=== PATIENT | female | born 1955 | race Caucasian/White ===

== ENCOUNTER → 2016-10-24 | Outpatient (CLI) | payer BC ==
[2016-10-24 13:18] LABS: ABSOLUTE EOSINOPHILS # (AUTO) 0.1 10^3/uL (0.0-0.6); ABSOLUTE LYMPHOCYTES (AUTO) 1.2 10^3/uL (0.5-4.7); ABSOLUTE MONOCYTES (AUTO) 0.5 10^3/uL (0.1-1.4); BASOPHILS % (AUTO) 0.6 % (0-2); EOSINOPHILS % (AUTO) 1.9 % (0-6); HEMOGLOBIN 14.3 g/dL (12.0-15.5); HGB HCT DIFFERENCE -2.1; LYMPHOCYTES % (AUTO) 17.1 % (13-45); MEAN CORPUSCULAR HGB CONC 31.8 g/dL (32.0-36.0); MEAN CORPUSCULAR VOLUME 88 fl (80-97); MONOCYTES % (AUTO) 7.9 % (3-13); RED BLOOD COUNT 5.12 10^6/uL (3.72-5.28); RED CELL DISTRIBUTION WIDTH 14.5 % (11.5-14.0); SEGMENTED NEUTROPHILS % (AUTO) 72.5 % (42-78); WHITE BLOOD COUNT 6.8 10^3/uL (4.0-10.5)
[2016-10-25 09:10] LABS: IMMUNOGLOBULIN E 3 IU/mL (0-100)
[2016-10-26 11:40] LABS: E001-IGE CAT DANDER <0.10 kU/L (Class 0); E005-IGE DOG DANDER <0.10 kU/L (Class 0); G002-IGE BERMUDA GRASS <0.10 kU/L (Class 0); G006-IGE TIMOTHY GRASS <0.10 kU/L (Class 0); G010-IGE JOHNSON GRASS <0.10 kU/L (Class 0); G017-IGE BAHIA GRASS <0.10 kU/L (Class 0); I100-IGE COCKROACHAMERICAN <0.10 kU/L (Class 0); M001-IGE PENICILLIUM CHRYSOGEN <0.10 kU/L (Class 0); M002-IGE CLADOSPORIUM HERBARUM <0.10 kU/L (Class 0); M003-IGE ASPERGILLUS FUMIGATUS <0.10 kU/L (Class 0); M004-IGE MUCOR RACEMOSUS <0.10 kU/L (Class 0); M005-IGE CANDIDA ALBICANS <0.10 kU/L (Class 0); M006-IGE ALTERNARIA ALTERNATA <0.10 kU/L (Class 0); M008-IGE SETOMELANOMMA ROSTRAT <0.10 kU/L (Class 0); M009-IGE FUSARIUM PROLIFERATUM <0.10 kU/L (Class 0); M010-IGE STEMPHYLIUM HERBARUM <0.10 kU/L (Class 0); M012-IGE AUREOBASIDI PULLULANS <0.10 kU/L (Class 0); M013-IGE PHOMA BETAE <0.10 kU/L (Class 0); T001-IGE MAPLE/BOX ELDER <0.10 kU/L (Class 0); T003-IGE BIRCH SILVER <0.10 kU/L (Class 0); T006-IGE CEDAR MOUNTAIN <0.10 kU/L (Class 0); T007-IGE OAK WHITE <0.10 kU/L (Class 0); T008-IGE ELM AMERICAN (WHITE <0.10 kU/L (Class 0); T011-IGE MAPLE LEAF SYCAMORE <0.10 kU/L (Class 0); T041-IGE HICKORY WHITE <0.10 kU/L (Class 0); T211-IGE SWEET GUM <0.10 kU/L (Class 0); W001-IGE RAGWEED SHORT/COMMO <0.10 kU/L (Class 0); W006-IGE MUGWORT <0.10 kU/L (Class 0); W009-IGE PLANTAIN ENGLISH <0.10 kU/L (Class 0); W014-IGE PIGWEED ROUGH <0.10 kU/L (Class 0); W018-IGE SHEEP SORREL(DOCK) <0.10 kU/L (Class 0); W020-IGE NETTLE <0.10 kU/L (Class 0)
[2016-10-26 11:42] LABS: M014-IGE EPICOCCUM PURPURASCEN <0.10 kU/L (Class 0)
== END ==
LOC: OD 12:01
PROVIDERS: ATTEND Nurse Practitioner Adult Health
DX: J45.40 Moderate persistent asthma, uncomplicated (principal)
CPT/HCPCS: 36415; 71020; 82785; 85025; 86003

== ENCOUNTER → 2016-12-13 | Outpatient (CLI) | payer BC ==
[2016-12-13 19:47] LABS: ABSOLUTE EOSINOPHILS # (AUTO) 0.1 10^3/uL (0.0-0.6); ABSOLUTE LYMPHOCYTES (AUTO) 0.8 10^3/uL (0.5-4.7); ABSOLUTE MONOCYTES (AUTO) 0.4 10^3/uL (0.1-1.4); ABSOLUTE NEUT (AUTO) 4.1 10^3/uL (1.7-8.2); BASOPHILS % (AUTO) 0.3 % (0-2); EOSINOPHILS % (AUTO) 1.3 % (0-6); HEMATOCRIT 39.7 % (36.0-47.0); HEMOGLOBIN 13.2 g/dL (12.0-15.5); HGB HCT DIFFERENCE -0.1; LYMPHOCYTES % (AUTO) 14.1 % (13-45); MEAN CORPUSCULAR HEMOGLOBIN 27.9 pg (27.0-33.4); MEAN CORPUSCULAR HGB CONC 33.3 g/dL (32.0-36.0); MEAN CORPUSCULAR VOLUME 84 fl (80-97); RED BLOOD COUNT 4.74 10^6/uL (3.72-5.28); RED CELL DISTRIBUTION WIDTH 15.2 % (11.5-14.0); SEGMENTED NEUTROPHILS % (AUTO) 76.3 % (42-78); WHITE BLOOD COUNT 5.3 10^3/uL (4.0-10.5)
[2016-12-13 19:58] LABS: ALBUMIN 4.2 g/dL (3.5-5.0); ANION GAP 11 (5-19); CARBON DIOXIDE 29 mmol/L (22-30); CHLORIDE 102 mmol/L (98-107); CREATININE RESULT 0.67 mg/dL (0.52-1.25); GLUCOSE 99 mg/dL (75-110); POTASSIUM 3.9 mmol/L (3.6-5.0); SODIUM 142.4 mmol/L (137-145); TOTAL PROTEIN 6.7 g/dL (6.3-8.2)
[2016-12-13 20:06] LABS: ALANINE AMINOTRANSFERASE 29 U/L (9-52); ALKALINE PHOSPHATASE 86 U/L (38-126); ASPARTATE AMINO TRANSFERASE 20 U/L (14-36); BILIRUBIN,TOTAL 0.8 mg/dL (0.2-1.3); BLOOD UREA NITROGEN 13 mg/dL (7-20); CALCIUM 9.8 mg/dL (8.4-10.2)
== END ==
LOC: RAD 16:36
PROVIDERS: ATTEND Nurse Practitioner
DX: R10.31 Right lower quadrant pain (principal); R11.2 Nausea with vomiting, unspecified
CPT/HCPCS: 36415; 74177; 80053; 82565; 85025

== ENCOUNTER 2016-12-29 12:45 | Emergency (ER) | payer BC ==
--- NOTE | 2016-12-29 13:07 | ER Document Report ---
ED Medical Screen (RME) - General TRAVEL OUTSIDE OF THE [place] IN LAST 30 DAYS: No <SOFIA YOUNG - Last Filed: 12/29/16 13:13> <KRISTYN ZHONG - Last Filed: 12/29/16 15:25> - General Stated Complaint: HEADACHE Notes: Patient states she woke up with a headache this morning at 7 AM.. Patient does report nausea, but no vomiting. Denies chest pain or shortness of breath history of TIA in 2013 in which she had a headache similar. Patient was brought in by EMS. I have greeted and performed a rapid initial assessment of this patient. A comprehensive ED assessment and evaluation of the patient, analysis of test results and completion of the medical decision making process will be conducted by additional ED providers. (SOFIA YOUNG) - Related Data Allergies/Adverse Reactions: codeine [Codeine] Allergy (Severe, Verified 12/29/16 13:01) severe vomiting Past Medical History - Past Medical History Cardiac Medical History: Reports: Hx Hypercholesterolemia Denies: Hx Coronary Artery Disease, Hx Heart Attack, Hx Hypertension Pulmonary Medical History: Reports: Hx Asthma - medicated, Hx Bronchitis - 2011 Denies: Hx COPD, Hx Pneumonia, Hx Tuberculosis Neurological Medical History: Denies: Hx Cerebrovascular Accident, Hx Seizures GI Medical History: Reports: Hx Gastroesophageal Reflux Disease. Denies: Hx Hepatitis, Hx Hiatal Hernia, Hx Ulcer Musculoskeltal Medical History: Reports Hx Arthritis Psychiatric Medical History: Reports: Hx Anxiety, Hx Depression Infectious Medical History: Denies: Hx Hepatitis Past Surgical History: Reports: Hx Abdominal Surgery - laproscopy, right inguinal hernia, Hx Orthopedic Surgery - bunion. Denies: Hx Mastectomy, Hx Open Heart Surgery, Hx Pacemaker - Immunizations Hx Diphtheria, Pertussis, Tetanus Vaccination: No <SOFIA YOUNG - Last Filed: 12/29/16 13:13> Physical Exam <SOFIA YOUNG - Last Filed: 12/29/16 13:13> <KRISTYN ZHONG - Last Filed: 12/29/16 15:25> - Vital signs Vitals: Temp Pulse Resp BP Pulse Ox 97.6 F 81 18 117/65 100 12/29/16 12:58 12/29/16 12:58 12/29/16 12:58 12/29/16 12:58 12/29/16 12:58 - General Notes: Patient appears in no acute distress. Her speech seems to be slightly slurred from what is normal per hospital employee that knows her. KADIE HAWKINS. (SOFIA YOUNG) Course - Laboratory Result Diagrams: 12/29/16 13:35 12/29/16 13:35 - Diagnostic Test Radiology reviewed: Reports reviewed - CT head nonacute <KRISTYN ZHONG F - Last Filed: 12/29/16 15:25> - Vital Signs Vital signs: Temp Pulse Resp BP Pulse Ox 97.6 F 81 18 117/65 100 12/29/16 12:58 12/29/16 12:58 12/29/16 12:58 12/29/16 12:58 12/29/16 12:58 - Laboratory Laboratory results interpreted by me: 12/29/16 12/29/16 13:35 13:35 RDW 15.9 H Sodium 146.8 H
[2016-12-29 13:59] LABS: PROTHROMBIN TIME 12.5 SEC (11.4-15.4)
[2016-12-29 14:00] LABS: PARTIAL THROMBOPLASTIN TIME 29.6 SEC (23.5-35.8)
[2016-12-29 14:06] LABS: ABSOLUTE EOSINOPHILS # (AUTO) 0.1 10^3/uL (0.0-0.6); ABSOLUTE LYMPHOCYTES (AUTO) 0.9 10^3/uL (0.5-4.7); ABSOLUTE MONOCYTES (AUTO) 0.5 10^3/uL (0.1-1.4); ABSOLUTE NEUT (AUTO) 2.5 10^3/uL (1.7-8.2); BASOPHILS % (AUTO) 0.5 % (0-2); EOSINOPHILS % (AUTO) 3.6 % (0-6); HEMATOCRIT 38.6 % (36.0-47.0); HEMOGLOBIN 12.7 g/dL (12.0-15.5); HGB HCT DIFFERENCE -0.5; LYMPHOCYTES % (AUTO) 23.2 % (13-45); MEAN CORPUSCULAR HEMOGLOBIN 28.4 pg (27.0-33.4); MEAN CORPUSCULAR VOLUME 86 fl (80-97); MONOCYTES % (AUTO) 11.4 % (3-13); RED BLOOD COUNT 4.49 10^6/uL (3.72-5.28); RED CELL DISTRIBUTION WIDTH 15.9 % (11.5-14.0); SEGMENTED NEUTROPHILS % (AUTO) 61.3 % (42-78); WHITE BLOOD COUNT 4.1 10^3/uL (4.0-10.5)
[2016-12-29 14:27] LABS: ALANINE AMINOTRANSFERASE 27 U/L (9-52); ALBUMIN 4.4 g/dL (3.5-5.0); ALKALINE PHOSPHATASE 92 U/L (38-126); ANION GAP 13 (5-19); ASPARTATE AMINO TRANSFERASE 21 U/L (14-36); BILIRUBIN,DIRECT 0.2 mg/dL (0.0-0.4); BILIRUBIN,TOTAL 0.4 mg/dL (0.2-1.3); BLOOD UREA NITROGEN 12 mg/dL (7-20); CALCIUM 9.7 mg/dL (8.4-10.2); CARBON DIOXIDE 27 mmol/L (22-30); CHLORIDE 107 mmol/L (98-107); CREATINE KINASE 51 U/L (30-135); CREATININE RESULT 0.78 mg/dL (0.52-1.25); GLUCOSE 85 mg/dL (75-110); POTASSIUM 4.6 mmol/L (3.6-5.0); SODIUM 146.8 mmol/L (137-145)
[2016-12-29 14:39] LABS: TROPONIN I < 0.012 ng/mL
--- NOTE | 2016-12-29 15:24 | ER Document Report ---
ED Headache <KRISTYN ZHONG - Last Filed: 12/29/16 15:35> - General Time seen by provider: 15:10 Mode of Arrival: Ambulatory TRAVEL OUTSIDE OF THE [place] IN LAST 30 DAYS: No - HPI Onset: Just prior to arrival - see HPI note Associated symptoms: Dizzy, Nausea/vomiting Similar symptoms previously: No Recently seen / treated by doctor: No <DESI KRISHNAMURTHY - Last Filed: 12/29/16 16:26> - General Chief Complaint: Headache Stated Complaint: HEADACHE Notes: Patient is a 61 year old female presenting to the emergency department for a headache. Patient states she woke up with a headache this morning. Patient's pain is located in the back of her head. Patient describes her pain as dull and states at worst it was 3/10 in pain and at time of exam her pain was 1/10. Patient states she felt "far away" when referring to her vision and she felt somewhat dizzy or unsteady. Patient also had some nausea but states that it passed. Patient denies any extremity weakness or falling. Patient has a history of TIA and was on Aspirin for about 1 year after her stroke but was taken off of it. Patient states she gets some migraines in her forehead but this headache was different. Patient's PCP is Mary SAWYER (DESI KRISHNAMURTHY) - Related Data Allergies/Adverse Reactions: codeine [Codeine] Allergy (Severe, Verified 12/29/16 13:01) severe vomiting Past Medical History - General Information source: Patient - Social History Smoking Status: Never Smoker Cigarette use (# per day): No Chew tobacco use (# tins/day): No Frequency of alcohol use: None Drug Abuse: None Family History: None - Past Medical History Cardiac Medical History: Reports: Hx Hypercholesterolemia Pulmonary Medical History: Reports: Hx Asthma - medicated, Hx Bronchitis - 2011 GI Medical History: Reports: Hx Gastroesophageal Reflux Disease Musculoskeltal Medical History: Reports Hx Arthritis Psychiatric Medical History: Reports: Hx Anxiety, Hx Depression Past Surgical History: Reports: Hx Abdominal Surgery - laproscopy, right inguinal hernia, Hx Orthopedic Surgery - bunion - Immunizations Hx Diphtheria, Pertussis, Tetanus Vaccination: No Hx Pneumococcal Vaccination: 09/27/12 <DESI KRISHNAMURTHY - Last Filed: 12/29/16 16:26> Review of Systems - Review of Systems Constitutional: No symptoms reported EENT: No symptoms reported Cardiovascular: See HPI, Dizziness Respiratory: No symptoms reported Gastrointestinal: No symptoms reported Genitourinary: No symptoms reported Female Genitourinary: No symptoms reported Musculoskeletal: No symptoms reported Skin: No symptoms reported Hematologic/Lymphatic: No symptoms reported Neurological/Psychological: See HPI, Headaches -: Yes All other systems reviewed and negative <DESI KRISHNAMURTHY - Last Filed: 12/29/16 16:26> Physical Exam <KRISTYN ZHONG - Last Filed: 12/29/16 15:35> - Vital signs Interpretation: Normal <DESI KRISHNAMURTHY - Last Filed: 12/29/16 16:26> - Vital signs Vitals: Temp Pulse Resp BP Pulse Ox 97.6 F 81 18 117/65 100 12/29/16 12:58 12/29/16 12:58 12/29/16 12:58 12/29/16 12:58 12/29/16 12:58 - Notes Notes: GENERAL: Well-appearing, well-nourished and in no acute distress HEAD: Atraumatic, normocephalic EYES: Pupils equal round and reactive to light, extraocular movements intact, sclera anicteric, no conjunctival injection or discharge ENT: Nares patent, oropharynx clear without exudates. Moist mucous membranes. NECK: Normal range of motion, supple, no carotid bruits LUNGS: Breath sounds clear to auscultation bilaterally and equal. No wheezes rales or rhonchi HEART: Normal S1S2, Regular rate and rhythm without murmurs, Equal peripheral pulses ABDOMEN: Soft, non-tender, No appreciable mass EXTREMITIES: Normal range of motion, no calf tenderness, Negative Homans, no edema NEUROLOGICAL: GCS 15, Cranial nerves II-XII intact. Normal visual thornton. Normal speech without aphasia, No Pronator Drift, 5/5 RUE strength, 5/5 RLE strength, 5/5 LUE strength, 5/5 LLE strength, No cerebellar abnormalities including normal finger-nose testing PSYCH: Normal mood, normal affect SKIN: Warm, Dry, no cyanosis, Cap refill < 2 sec (DESI KRISHNAMURTHY) Course - Laboratory Result Diagrams: 12/29/16 13:35 12/29/16 13:35 - EKG Interpretation by Ms EKG shows normal: Sinus rhythm, [place], Intervals, QRS Complexes, ST-T Waves <KRISTYN ZHONG - Last Filed: 12/29/16 15:35> - Laboratory Result Diagrams: 12/29/16 13:35 12/29/16 13:35 <DESI KRISHNAMURTHY - Last Filed: 12/29/16 16:26> - Re-evaluation Re-evalutation: 12/29/16 15:34 I discussed findings with the patient including a normal neuro examination. This was not a sudden onset headache as she awoke with it. At severity most it was 3 now 1. She is on no anticoagulant even aspirin but I did ask her to discuss with her PCP at least low-dose aspirin as she had a nonhemorrhagic TIA in the past. Clinically this seems like a low likelihood for a subarachnoid hemorrhage as well, though we did briefly discuss lumbar puncture, we have deferred. She understands warning signs to watch for and return immediately if worsening otherwise. (KRISTYN ZHONG) - Vital Signs Vital signs: Temp Pulse Resp BP Pulse Ox 97.6 F 81 18 117/65 100 12/29/16 12:58 12/29/16 12:58 12/29/16 12:58 12/29/16 12:58 12/29/16 12:58 - Laboratory Laboratory results interpreted by me: 12/29/16 12/29/16 13:35 13:35 RDW 15.9 H Sodium 146.8 H Discharge <KRISTYN ZHONG - Last Filed: 12/29/16 15:35> <DESI KRISHNAMURTHY - Last Filed: 12/29/16 16:26> - Discharge Clinical Impression: Headache Qualifiers: Headache type: unspecified Headache chronicity pattern: acute headache Intractability: not intractable Qualified Code(s): R51 - Headache Condition: Good Disposition: HOME, SELF-CARE Instructions: Headache ([facility]) Additional Instructions: Return for worsening or concern otherwise, development of fever, chest pain, new weakness numbness or tingling. Referrals: MARY LANIER, BLEACH PACKER [COMMUNITY BASED STAFF] - Follow up in 3-5 days Scribe Documentation - Scribe Written by Scribe:: Desi Krishnamurthy 12/29/16 16:15 acting as scribe for Dr.:: [place] <DESI KRISHNAMURTHY - Last Filed: 12/29/16 16:26>
[2016-12-29 16:28] VITALS: BP 137/75
--- NOTE | 2016-12-29 18:20 | EKG REPORT ---
SEVERITY:- ABNORMAL ECG - SINUS RHYTHM NONSPECIFIC ST-T CHANGES : Confirmed by: Jeremy Shaw MD 29-Dec-2016 18:18:33
== END 2016-12-29 16:28 | disposition home or self-care (01) ==
LOC: ER 12:45
DX: R51 Headache (principal); R42 Dizziness and giddiness; R11.0 Nausea
CPT/HCPCS: 36415; 70450; 80053; 82550; 82553; 84484; 85025; 85610; 85730; 93005; 93010; 99284

== ENCOUNTER 2017-06-22 21:35 | Emergency (ER) | payer BC ==
--- NOTE | 2017-06-22 23:43 | ER Document Report ---
ED Dizziness/Weakness - General Chief Complaint: Dizziness Time Seen by Provider: 06/22/17 23:20 Notes: 61-year-old female presents after eating at [employer] at approximately 8 PM tonight developed dizziness and nausea. She was eating her salad when this started.61-year-old female presents after eating at [employer] at approximately 8 PM tonight developed dizziness and nausea. She was eating her salad when this began. She stated it did not taste right. She had lightheaded sensation and developed numbness and tingling in both her hands and both of her feet. She did develop a little right sided neck pain and right axillary pain but no anterior chest discomfort. No shortness of breath. No focal weakness. No speech or swallowing difficulty. She did require some assistance to get to the car to help get her home and then she was brought by private vehicle here. She does have a history of hyperlipidemia but denies any cardiac disease hypertension diabetes. She admits to a prior TIA. TRAVEL OUTSIDE OF THE [place] IN LAST 30 DAYS: No - Related Data Allergies/Adverse Reactions: codeine [Codeine] Allergy (Severe, Verified 06/22/17 21:45) severe vomiting Past Medical History - Social History Smoking Status: Never Smoker Family History: None - Past Medical History Cardiac Medical History: Reports: Hx Hypercholesterolemia Denies: Hx Coronary Artery Disease, Hx Heart Attack, Hx Hypertension Pulmonary Medical History: Reports: Hx Asthma - medicated, Hx Bronchitis - 2011 Denies: Hx COPD, Hx Pneumonia, Hx Tuberculosis Neurological Medical History: Denies: Hx Cerebrovascular Accident, Hx Seizures Renal/ Medical History: Denies: Hx Peritoneal Dialysis GI Medical History: Reports: Hx Gastroesophageal Reflux Disease. Denies: Hx Hepatitis, Hx Hiatal Hernia, Hx Ulcer Musculoskeltal Medical History: Reports Hx Arthritis Psychiatric Medical History: Reports: Hx Anxiety, Hx Depression Infectious Medical History: Denies: Hx Hepatitis Past Surgical History: Reports: Hx Abdominal Surgery - laproscopy, right inguinal hernia, Hx Orthopedic Surgery - bunion. Denies: Hx Mastectomy, Hx Open Heart Surgery, Hx Pacemaker - Immunizations Hx Diphtheria, Pertussis, Tetanus Vaccination: No Hx Pneumococcal Vaccination: 09/27/12 Review of Systems - Review of Systems -: Yes All other systems reviewed and negative Physical Exam - Vital signs Vitals: Temp Pulse Resp BP Pulse Ox 97.6 F 79 18 96/61 L 96 06/22/17 21:45 06/22/17 21:45 06/22/17 21:45 06/22/17 21:45 06/22/17 21:45 - Notes Notes: Physical Exam: GENERAL: VS as per nursing doc. Well-appearing, well-nourished and in no acute distress. HEAD: Atraumatic, normocephalic. EYES: Pupils equal round and reactive to light, extraocular movements intact, sclera anicteric, no conjunctival injection or discharge. ENT: Nares patent, oropharynx clear without exudates. Moist mucous membranes. NECK: Normal range of motion, supple without lymphadenopathy. No JVD. No Carotid Bruits. LUNGS: Breath sounds clear to auscultation bilaterally and equal. No wheezes rales or rhonchi. HEART: Normal S1S2. Regular rate and rhythm without murmurs. Equal peripheral pulses. ABDOMEN: Soft, non-tender. No pulsatile mass. EXTREMITIES: Normal range of motion. No calf tenderness. Negative Homans. No edema. NEUROLOGICAL: Cranial nerves intact, 5/5 upper and lower extremity strength. Normal sensation. No cerebellar abnormalities. No facial asymmetry. Visual thornton intact. PSYCH: Normal mood, normal affect. SKIN: Warm, dry, no cyanosis, no splinter hemorrhages. Cap refill < 2 sec. Course - Re-evaluation Re-evalutation: 06/23/17 01:33 I went to reevaluate the patient she is sitting up comfortably completely asymptomatic. She has had no anterior chest discomfort or breathing difficulty , no new neurologic symptoms. Her paresthesias have resolved as well as the nausea. I discussed differential with her, repeat cardiacs to have a final hearts 3 score. She is going to call a taxi and go home so these were deferred and she will return immediately if she develops any further symptoms. - Vital Signs Vital signs: Temp Pulse Resp BP Pulse Ox 97.6 F 103 H 16 103/68 100 06/22/17 21:45 06/23/17 00:00 06/23/17 01:01 06/23/17 01:00 06/23/17 01:01 - Laboratory Result Diagrams: 06/22/17 23:50 06/22/17 23:50 Laboratory results interpreted by me: 06/22/17 06/22/17 23:50 23:50 RDW 15.0 H Lymphocytes % 12.8 L BUN 21 H - EKG Interpretation by Me EKG shows normal: Sinus rhythm - EKG shows a normal sinus rhythm with a single PVC. There is some T-wave inversion in leads V2 and V3 with some flattening extending to before. The flattening appears consistent with EKG from December 2016 though there was no significant T-wave inversion at that point. This appears isolated to V2. EKG otherwise appears consistent with prior. Discharge - Discharge Clinical Impression: Paresthesia, Nausea, Dizziness Condition: Good Instructions: Dizziness ([facility]) Additional Instructions: Please return immediately if you are develop recurring symptoms, any chest discomfort or sensation you will pass out, or worsening in general Referrals: MARY LANIER NP [Primary Care Provider] - Follow up in 3-5 days
[2017-06-23 00:06] LABS: ABSOLUTE BASOPHILS # (AUTO) 0.1 10^3/uL (0.0-0.2); ABSOLUTE EOSINOPHILS # (AUTO) 0.1 10^3/uL (0.0-0.6); ABSOLUTE LYMPHOCYTES (AUTO) 1.1 10^3/uL (0.5-4.7); ABSOLUTE MONOCYTES (AUTO) 0.7 10^3/uL (0.1-1.4); ABSOLUTE NEUT (AUTO) 6.8 10^3/uL (1.7-8.2); BASOPHILS % (AUTO) 0.8 % (0-2); HEMATOCRIT 39.1 % (36.0-47.0); HEMOGLOBIN 13.3 g/dL (12.0-15.5); HGB HCT DIFFERENCE 0.8; LYMPHOCYTES % (AUTO) 12.8 % (13-45); MEAN CORPUSCULAR HEMOGLOBIN 29.7 pg (27.0-33.4); MEAN CORPUSCULAR VOLUME 87 fl (80-97); MONOCYTES % (AUTO) 7.6 % (3-13); RED BLOOD COUNT 4.47 10^6/uL (3.72-5.28); SEGMENTED NEUTROPHILS % (AUTO) 77.8 % (42-78); WHITE BLOOD COUNT 8.7 10^3/uL (4.0-10.5)
[2017-06-23 00:21] LABS: ALANINE AMINOTRANSFERASE 22 U/L (9-52); ALBUMIN 4.2 g/dL (3.5-5.0); ALKALINE PHOSPHATASE 75 U/L (38-126); ANION GAP 9 (5-19); ASPARTATE AMINO TRANSFERASE 21 U/L (14-36); BILIRUBIN,DIRECT 0.4 mg/dL (0.0-0.4); BILIRUBIN,TOTAL 0.6 mg/dL (0.2-1.3); BLOOD UREA NITROGEN 21 mg/dL (7-20); CALCIUM 9.9 mg/dL (8.4-10.2); CARBON DIOXIDE 28 mmol/L (22-30); CHLORIDE 103 mmol/L (98-107); CREATINE KINASE 43 U/L (30-135); CREATININE RESULT 0.86 mg/dL (0.52-1.25); GLUCOSE 105 mg/dL (75-110); POTASSIUM 4.3 mmol/L (3.6-5.0); TOTAL PROTEIN 6.7 g/dL (6.3-8.2)
[2017-06-23 00:41] LABS: CREATINE KINASE MB 0.39 ng/mL (<4.55); TROPONIN I < 0.012 ng/mL
--- NOTE | 2017-06-23 00:43 | RADIOLOGY REPORT (SQ) ---
EXAM DESCRIPTION: CHEST SINGLE VIEW COMPLETED DATE/TIME: 06/23/2017 12:13 am REASON FOR STUDY: Right CP COMPARISON: 10.24.16 EXAM PARAMETERS: NUMBER OF VIEWS: One view. TECHNIQUE: Single frontal radiographic view of the chest acquired. RADIATION DOSE: NA LIMITATIONS: None. FINDINGS: LUNGS AND PLEURA: No opacities, masses or pneumothorax. No pleural effusion. Possible yuan cified granuloma of the left upper lung. MEDIASTINUM AND HILAR STRUCTURES: No masses. Contour normal. HEART AND VASCULAR STRUCTURES: Heart normal in size. Normal vasculature. BONES: No acute findings. HARDWARE: None in the chest. OTHER: No other significant finding. IMPRESSION: No acute cardiopulmonary findings. TECHNICAL DOCUMENTATION: JOB ID: [id number]
[2017-06-23 01:05] VITALS: BP 103/68
--- NOTE | 2017-06-23 11:49 | EKG REPORT ---
SEVERITY:- ABNORMAL ECG - SINUS RHYTHM VENTRICULAR PREMATURE COMPLEX LEFT AXIS DEVIATION BORDERLINE R WAVE PROGRESSION, ANTERIOR LEADS NONSPECIFIC T ABNORMALITIES, ANTERIOR LEADS : Confirmed by: Bao Almeida 23-Jun-2017 11:49:03
== END 2017-06-23 01:45 | disposition home or self-care (01) ==
LOC: ER 21:35
DX: R20.0 Anesthesia of skin (principal); R42 Dizziness and giddiness; R11.0 Nausea
CPT/HCPCS: 36415; 71010; 80053; 82550; 82553; 84484; 85025; 93005; 93010; 99284

== ENCOUNTER → 2017-07-14 | Outpatient (CLI) | payer BC ==
--- NOTE | 2017-07-15 09:19 | RADIOLOGY REPORT (SQ) ---
EXAM DESCRIPTION: MRI LUMBAR SPINE WITHOUT COMPLETED DATE/TIME: 07/14/2017 1:54 pm REASON FOR STUDY: RADICULOPATHY, LUMBAR REGION M54.16 RADICULOPATHY, LUMBAR REGION COMPARISON: 2013. TECHNIQUE: Sagittal and Axial imaging includes T1, T2, STIR and gradient echo sequences. Coronal T2/ HASTE imaging. LIMITATIONS: None. FINDINGS: VISUALIZED UPPER ABDOMEN: Limited evaluation. No acute or suspicious findings suggested. SEGMENTATION: Numbering is performed to match prior study. S1 is transitional, partially sacralized. ALIGNMENT: Anatomic. VERTEBRAE: Intact. BONE MARROW: No fracture or worrisome bone lesion. Mild endplate edema posteriorly at the L2-3 level . DISC SIGNAL: Multilevel decreased signal and height. POSTERIOR ELEMENTS: No pars defect. Diffuse facet arthropathy throughout the lower lumbar spine. HARDWARE: None in the spine. CORD AND CONUS: Normal in size and signal intensity. Conus at the appropriate level. SOFT TISSUES: No aortic aneurysm seen. No bulky retroperitoneal adenopathy or mass. No paraspinal mas s or fluid. L1-L2: Mild disc bulging. No significant stenosis. L2-L3: Disc height loss with generalized mild disc bulging. Superimposed central annular fissure wit h broad mild protrusion. Flattening of the ventral thecal sac. Up to moderate central stenosis. Mi ld bilateral foraminal narrowing. L3-L4: No significant spinal stenosis or exit foraminal stenosis. L4-L5: Facet overgrowth with mild -moderate central narrowing. To moderate left foraminal stenosis. L5-S1: No significant spinal stenosis or exit foraminal stenosis. LOWER THORACIC: Central focal disc hernia at T12-L1 without mass effect on the conus. Small central protrusion also at T10-11. This probably contacts the ventral aspect of the cord. No high-grade meghan nosis. Limited assessment. SACRUM: Visualized upper sacrum intact. OTHER: No other significant findings. IMPRESSION: 1. Multilevel lumbar spondylosis. Up to moderate narrowing at L2-3, as before. Lower t horacic spondylosis also looks grossly similar allowing for limited assessment. TECHNICAL DOCUMENTATION: JOB ID: [id number] [employer]- All Rights Reserved
== END ==
LOC: RAD 13:00
PROVIDERS: ATTEND Pain Medicine Pain Medicine
DX: M54.16 Radiculopathy, lumbar region (principal)
CPT/HCPCS: 72148

== ENCOUNTER → 2017-07-16 | Outpatient (CLI) | payer BC ==
[2017-07-16 14:45] LABS: ABSOLUTE EOSINOPHILS # (AUTO) 0.1 10^3/uL (0.0-0.6); ABSOLUTE LYMPHOCYTES (AUTO) 0.8 10^3/uL (0.5-4.7); ABSOLUTE MONOCYTES (AUTO) 0.3 10^3/uL (0.1-1.4); ABSOLUTE NEUT (AUTO) 3.1 10^3/uL (1.7-8.2); BASOPHILS % (AUTO) 0.6 % (0-2); EOSINOPHILS % (AUTO) 2.1 % (0-6); HEMOGLOBIN 12.7 g/dL (12.0-15.5); HGB HCT DIFFERENCE 0.1; LYMPHOCYTES % (AUTO) 19.3 % (13-45); MEAN CORPUSCULAR HEMOGLOBIN 29.6 pg (27.0-33.4); MEAN CORPUSCULAR HGB CONC 33.5 g/dL (32.0-36.0); MEAN CORPUSCULAR VOLUME 88 fl (80-97); MONOCYTES % (AUTO) 5.9 % (3-13); RED CELL DISTRIBUTION WIDTH 13.9 % (11.5-14.0); SEGMENTED NEUTROPHILS % (AUTO) 72.1 % (42-78); WHITE BLOOD COUNT 4.4 10^3/uL (4.0-10.5)
[2017-07-16 15:08] LABS: ALANINE AMINOTRANSFERASE 31 U/L (9-52); ALBUMIN 4.3 g/dL (3.5-5.0); ALKALINE PHOSPHATASE 82 U/L (38-126); ANION GAP 13 (5-19); ASPARTATE AMINO TRANSFERASE 21 U/L (14-36); BILIRUBIN,DIRECT 0.3 mg/dL (0.0-0.4); BILIRUBIN,TOTAL 0.4 mg/dL (0.2-1.3); BLOOD UREA NITROGEN 13 mg/dL (7-20); CALCIUM 9.7 mg/dL (8.4-10.2); CARBON DIOXIDE 27 mmol/L (22-30); CHLORIDE 106 mmol/L (98-107); CREATININE RESULT 0.77 mg/dL (0.52-1.25); GLUCOSE 128 mg/dL (75-110); MAGNESIUM 2.1 mg/dL (1.6-2.3); POTASSIUM 4.2 mmol/L (3.6-5.0); SODIUM 145.9 mmol/L (137-145); TOTAL PROTEIN 6.8 g/dL (6.3-8.2)
== END ==
LOC: LAB 14:22
PROVIDERS: ATTEND Nurse Practitioner
DX: R47.81 Slurred speech (principal)
CPT/HCPCS: 36415; 80053; 83735; 85025; 86141

== ENCOUNTER → 2017-09-29 | Outpatient (CLI) | payer BC ==
--- NOTE | 2017-09-29 17:27 | RADIOLOGY REPORT (SQ) ---
EXAM DESCRIPTION: MRI CERVICAL SPINE WITHOUT; EMPLOYEE COMPLETED DATE/TIME: 09/29/2017 9:42 am REASON FOR STUDY: SPINAL STENOSIS,CERVICAL REGION; SPINAL STENOSIS, CERVICAL REGION M48.02 SPINAL S TENOSIS, CERVICAL REGION COMPARISON: 08/28/2011 TECHNIQUE: Sagittal and Axial imaging includes T1, T2, STIR and gradient echo sequences. LIMITATIONS: Patient motion. FINDINGS: ALIGNMENT: Anatomic. VERTEBRAE: Intact. BONE MARROW: Normal. No marrow replacement or reactive changes. DISCS: Desiccation multiple levels. HARDWARE: None in the spine. CORD AND BASE OF BRAIN: Normal in size and signal intensity. SOFT TISSUES: No soft tissue masses. C1-C2: No significant spinal stenosis. C2-C3: No significant spinal stenosis or exit foraminal stenosis. C3-C4: Mild spinal stenosis due to disc bulge. C4-C5: Mild spinal stenosis due to disc bulge. Uncovertebral arthropathy. Mild right and moderate l eft neural foraminal narrowing. C5-C6: Mild spinal stenosis. Moderate right and severe left neural foraminal narrowing. C6-C7: Mild spinal stenosis. Moderate neural foraminal narrowing bilaterally. C7-T1: No significant spinal stenosis or exit foraminal stenosis. UPPER THORACIC: Incompletely imaged. No significant spinal stenosis or exit foraminal stenosis. OTHER: No other significant finding. IMPRESSION: Mild spinal stenosis at multiple levels. No significant change. TECHNICAL DOCUMENTATION: JOB ID: [id number] [employer]- All Rights Reserved
== END ==
LOC: RAD 08:52
DX: M48.02 Spinal stenosis, cervical region (principal)
CPT/HCPCS: 72141

== ENCOUNTER → 2017-11-06 | Outpatient (CLI) | payer BC ==
[2017-11-06 18:57] LABS: FREE T4 (FREE THYROXINE) 1.32 ng/dL (0.78-2.19)
[2017-11-06 19:11] LABS: THYROID STIMULATING HORMONE 4.47 uIU/mL (0.47-4.68)
== END ==
LOC: OD 17:05
PROVIDERS: ATTEND Nurse Practitioner
DX: R94.6 Abnormal results of thyroid function studies (principal)
CPT/HCPCS: 36415; 84439; 84443; 86376

== ENCOUNTER 2017-11-16 15:37 | Emergency (ER) | payer BC ==
[2017-11-16] MEDS ORDERED: ASPIRIN 81 MG TABLET, CHEWABLE PO ONE (16:49)
--- NOTE | 2017-11-16 16:57 | ER Document Report ---
ED Medical Screen (RME) - General Chief Complaint: Chest Pain Stated Complaint: CHEST PAIN Time Seen by Provider: 11/16/17 16:46 Notes: Patient is a 62 year old female who presents to the ED complaining of redness and chest pain. This started first with redness within 2 hours after taking keflex which she has taken in the past. She then developed chest pressure around 11am. Described as pressure with radiation into her chest and jaw 4/5 and lasted for 1.5 hours and slowly dissipated to chest pain free now. Now with headache. She had a internal loop monitor placed on 11/15 for evaluation of syncopal episodes. She also has a history cervical and lumbar stenosis and disc disease h/o syncope, TIA, diastolic CHF TRAVEL OUTSIDE OF THE [place] IN LAST 30 DAYS: No - Related Data Allergies/Adverse Reactions: codeine [Codeine] Allergy (Severe, Verified 11/16/17 15:57) severe vomiting Past Medical History - Past Medical History Cardiac Medical History: Reports: Hx Hypercholesterolemia Denies: Hx Coronary Artery Disease, Hx Heart Attack, Hx Hypertension Pulmonary Medical History: Reports: Hx Asthma - medicated, Hx Bronchitis - 2011 Denies: Hx COPD, Hx Pneumonia, Hx Tuberculosis Neurological Medical History: Denies: Hx Cerebrovascular Accident, Hx Seizures Renal/ Medical History: Denies: Hx Peritoneal Dialysis GI Medical History: Reports: Hx Gastroesophageal Reflux Disease. Denies: Hx Hepatitis, Hx Hiatal Hernia, Hx Ulcer Musculoskeltal Medical History: Reports Hx Arthritis Psychiatric Medical History: Reports: Hx Anxiety, Hx Depression Infectious Medical History: Denies: Hx Hepatitis Past Surgical History: Reports: Hx Abdominal Surgery - laproscopy, right inguinal hernia, Hx Orthopedic Surgery - bunion. Denies: Hx Mastectomy, Hx Open Heart Surgery, Hx Pacemaker - Immunizations Hx Diphtheria, Pertussis, Tetanus Vaccination: No Physical Exam - Notes Notes: PHYSICAL EXAM GENERAL: Alert, interacts well. HEAD: Normocephalic, atraumatic. EYES: Pupils equal, round, and reactive to light. Extraocular movements intact. ENT: Oral mucosa moist, tongue midline. NECK: Full range of motion. Supple. Trachea midline. LUNGS: Clear to auscultation bilaterally, no wheezes, rales, or rhonchi. No respiratory distress. HEART: Regular rate and rhythm. No murmurs, gallops, or rubs. NEUROLOGICAL: Alert and oriented x4. Normal speech. PSYCH: Normal affect, normal mood. SKIN: steri strips over sternum with some blanching erythema above the dressing
[2017-11-16 17:38] LABS: ABSOLUTE BASOPHILS # (AUTO) 0.1 10^3/uL (0.0-0.2); ABSOLUTE EOSINOPHILS # (AUTO) 0.1 10^3/uL (0.0-0.6); ABSOLUTE LYMPHOCYTES (AUTO) 1.6 10^3/uL (0.5-4.7); ABSOLUTE MONOCYTES (AUTO) 0.5 10^3/uL (0.1-1.4); ABSOLUTE NEUT (AUTO) 4.3 10^3/uL (1.7-8.2); BASOPHILS % (AUTO) 0.9 % (0-2); EOSINOPHILS % (AUTO) 2.1 % (0-6); HEMATOCRIT 39.6 % (36.0-47.0); HEMOGLOBIN 13.3 g/dL (12.0-15.5); LYMPHOCYTES % (AUTO) 24.2 % (13-45); MEAN CORPUSCULAR HEMOGLOBIN 29.5 pg (27.0-33.4); MEAN CORPUSCULAR HGB CONC 33.6 g/dL (32.0-36.0); MEAN CORPUSCULAR VOLUME 88 fl (80-97); MONOCYTES % (AUTO) 8.2 % (3-13); PLATELET COUNT 257 10^3/uL (150-450); RED BLOOD COUNT 4.52 10^6/uL (3.72-5.28); RED CELL DISTRIBUTION WIDTH 14.7 % (11.5-14.0); SEGMENTED NEUTROPHILS % (AUTO) 64.6 % (42-78); TOTAL CELLS COUNTED % (AUTO) 100 %; WHITE BLOOD COUNT 6.7 10^3/uL (4.0-10.5)
--- NOTE | 2017-11-16 17:40 | RADIOLOGY REPORT (SQ) ---
EXAM DESCRIPTION: CHEST SINGLE VIEW COMPLETED DATE/TIME: 11/16/2017 5:19 pm REASON FOR STUDY: chest pain COMPARISON: Two-view chest 12/08/2014 EXAM PARAMETERS: NUMBER OF VIEWS: One view. TECHNIQUE: Single frontal radiographic view of the chest acquired. RADIATION DOSE: NA LIMITATIONS: None. FINDINGS: LUNGS AND PLEURA: No opacities, masses or pneumothorax. No pleural effusion. MEDIASTINUM AND HILAR STRUCTURES: No masses. Contour normal. HEART AND VASCULAR STRUCTURES: Heart normal in size. Normal vasculature. BONES: No acute findings. HARDWARE: Implanted cardiac monitoring device over the left anterior chest OTHER: No other significant finding. IMPRESSION: NO ACUTE RADIOGRAPHIC FINDING IN THE CHEST. TECHNICAL DOCUMENTATION: JOB ID: [id number] [employer]- All Rights Reserved
[2017-11-16 17:43] LABS: PROTHROMBIN TIME 12.8 SEC (11.4-15.4)
[2017-11-16 17:52] LABS: ALANINE AMINOTRANSFERASE 30 U/L (9-52); ALBUMIN 4.2 g/dL (3.5-5.0); ALKALINE PHOSPHATASE 73 U/L (38-126); ANION GAP 10 (5-19); ASPARTATE AMINO TRANSFERASE 15 U/L (14-36); BILIRUBIN,DIRECT 0.3 mg/dL (0.0-0.4); BILIRUBIN,TOTAL 0.3 mg/dL (0.2-1.3); BLOOD UREA NITROGEN 20 mg/dL (7-20); CALCIUM 9.6 mg/dL (8.4-10.2); CARBON DIOXIDE 24 mmol/L (22-30); CHLORIDE 107 mmol/L (98-107); CREATINE KINASE 34 U/L (30-135); GLUCOSE 90 mg/dL (75-110); POTASSIUM 4.3 mmol/L (3.6-5.0); SODIUM 141.4 mmol/L (137-145); TOTAL PROTEIN 6.8 g/dL (6.3-8.2)
[2017-11-16 18:04] LABS: CREATINE KINASE MB 0.47 ng/mL (<4.55)
[2017-11-16 18:05] LABS: TROPONIN I < 0.012 ng/mL
[2017-11-16] MEDS ORDERED: FAMOTIDINE 20 MG TABLET PO ONE (21:18)
[2017-11-16] MEDS ORDERED: DIPHENHYDRAMINE HCL 25 MG CAPSULE PO ONE (21:18)
--- NOTE | 2017-11-16 21:21 | ER Document Report ---
ED General - General Chief Complaint: Chest Pain Stated Complaint: CHEST PAIN Time Seen by Provider: 11/16/17 16:46 Mode of Arrival: Ambulatory Information source: Patient Notes: This is a 62-year-old female with a history of chronic back pain, diastolic dysfunction, near syncope with a recent cardiac workup ([facility], including stress test and echo which were reported as normal 3 weeks ago). The patient recently had a loop recorder placed yesterday by Dr. Malave. She took 3 Keflex and once this morning and developed diffuse flushing , redness, itching. Patient states that the symptoms started at approximately noon and lasted for a few hours. Patient denies any shortness of breath. Patient states she still feels a little itchy but otherwise the redness is resolved. TRAVEL OUTSIDE OF THE [place] IN LAST 30 DAYS: No - HPI Onset: Just prior to arrival Onset/Duration: Sudden Quality of pain: Dull Severity: Mild Associated symptoms: denies: Fever, Shortness of breath Exacerbated by: Denies Relieved by: Denies Similar symptoms previously: No Recently seen / treated by doctor: Yes - Related Data Allergies/Adverse Reactions: codeine [Codeine] Allergy (Severe, Verified 11/16/17 15:57) severe vomiting Past Medical History - General Information source: Patient - Social History Smoking Status: Never Smoker Cigarette use (# per day): No Chew tobacco use (# tins/day): No Frequency of alcohol use: None Drug Abuse: None Lives with: Family Family History: None Patient has suicidal ideation: No Patient has homicidal ideation: No - Past Medical History Cardiac Medical History: Reports: Hx Hypercholesterolemia Denies: Hx Coronary Artery Disease, Hx Heart Attack, Hx Hypertension Pulmonary Medical History: Reports: Hx Asthma - medicated, Hx Bronchitis - 2011 Denies: Hx COPD, Hx Pneumonia, Hx Tuberculosis Neurological Medical History: Denies: Hx Cerebrovascular Accident, Hx Seizures Renal/ Medical History: Denies: Hx Peritoneal Dialysis GI Medical History: Reports: Hx Gastroesophageal Reflux Disease. Denies: Hx Hepatitis, Hx Hiatal Hernia, Hx Ulcer Musculoskeltal Medical History: Reports Hx Arthritis Psychiatric Medical History: Reports: Hx Anxiety, Hx Depression Infectious Medical History: Denies: Hx Hepatitis Past Surgical History: Reports: Hx Abdominal Surgery - laproscopy, right inguinal hernia, Hx Orthopedic Surgery - bunion. Denies: Hx Mastectomy, Hx Open Heart Surgery, Hx Pacemaker - Immunizations Hx Diphtheria, Pertussis, Tetanus Vaccination: No Hx Pneumococcal Vaccination: 09/27/12 Review of Systems - Review of Systems Constitutional: denies: Chills, Fever EENT: No symptoms reported Cardiovascular: See HPI Respiratory: No symptoms reported Gastrointestinal: No symptoms reported Genitourinary: No symptoms reported Female Genitourinary: No symptoms reported Musculoskeletal: See HPI Skin: See HPI Hematologic/Lymphatic: No symptoms reported Neurological/Psychological: No symptoms reported Physical Exam - Vital signs Vitals: Pulse Resp BP Pulse Ox 73 20 107/57 L 100 11/16/17 16:29 11/16/17 16:29 11/16/17 16:29 11/16/17 16:29 Notes: Physical exam: GENERAL: 62-year-old female, alert and oriented 3, no acute distress HEAD: Atraumatic, normocephalic. EYES: Pupils equal round and reactive to light, extraocular movements intact, sclera anicteric, conjunctiva are normal. ENT: TMs normal, nares patent, oropharynx clear without exudates. Moist mucous membranes. NECK: Normal range of motion, supple without obvious mass or JVD. LUNGS: Breath sounds clear to auscultation bilaterally and equal. No wheezes rales or rhonchi. HEART: Regular rate and rhythm without murmurs, rubs or gallops. Chest wall: Loop recorder site is dry and intact. There is some erythema above and below the wound site where the patient's tape was. There is no obvious evidence of infection or cellulitis. ABDOMEN: Soft, normoactive bowel sounds. No tenderness to palpation. No guarding, no rebound. No masses appreciated. EXTREMITIES: Normal range of motion, no pitting or edema. No clubbing or cyanosis. NEUROLOGICAL: Cranial nerves II through XII grossly intact. Normal speech, moving all extremities. PSYCH: Normal mood, normal affect. SKIN: Warm, Dry, normal turgor, no rashes or lesions noted. Course - Vital Signs Vital signs: Temp Pulse Resp BP Pulse Ox 97.8 F 70 18 130/81 H 100 11/16/17 20:19 11/16/17 20:19 11/16/17 23:04 11/16/17 23:04 11/16/17 23:04 - Laboratory Result Diagrams: 11/16/17 17:20 11/16/17 17:20 Laboratory results interpreted by me: 11/16/17 11/16/17 17:20 17:20 RDW 14.7 H Est GFR ( Amer) 54 L Est GFR (Non-Af Amer) 44 L - Diagnostic Test Radiology reviewed: Image reviewed, Reports reviewed - Chest x-ray shows no infiltrates or effusions - EKG Interpretation by Me Rate: Normal Rhythm: NSR - EKG shows normal sinus rhythm with a ventricular rate of 79, no acute ST-T wave changes Discharge - Discharge Clinical Impression: Allergic reaction Condition: Stable Disposition: HOME, SELF-CARE Additional Instructions: Until you follow-up with an tenant relations coordinator, I would avoid Keflex (and other cephalosporins). Take Pepcid and Benadryl as prescribed. Take Bactrim for the next 2 days. Follow-up with your primary care doctor. Return to the emergency room for any worsening chest pain, shortness of breath or any concerns or getting worse. Recommendations: Take medicines as prescribed. Take epinephrine autoinjector for any shortness of breath or feelings like her airway is getting closed off work the ability to pass out. He to use the autoinjector, return to the ER at once. Followup with an tenant relations coordinator for allergy testing: [facility]: Address: [address] [place] [address], [place] [address] Prescriptions: Diphenhydramine HCl [Benadryl 25 mg Capsule] 25 mg PO Q4 #10 capsule Famotidine [Pepcid 20 mg Tablet] 20 mg PO BID #10 tablet Sulfamethoxazole/Trimethoprim [Bactrim Ds Tablet] 1 each PO BID #4 tablet Referrals: MARY LANIER NP [Primary Care Provider] - Follow up in 3-5 days
--- NOTE | 2017-11-16 22:08 | EKG REPORT ---
SEVERITY:- BORDERLINE ECG - SINUS RHYTHM PROBABLE LEFT ATRIAL ABNORMALITY : Confirmed by: Bao Almeida 16-Nov-2017 22:07:31
[2017-11-16 23:12] VITALS: BP 130/81
== END 2017-11-16 23:43 | disposition home or self-care (01) ==
LOC: ER 15:37
DX: T78.40XA Allergy, unspecified, initial encounter (principal); X58.XXXA Exposure to other specified factors, initial encounter; L53.9 Erythematous condition, unspecified; L29.9 Pruritus, unspecified; R07.9 Chest pain, unspecified; J45.909 Unspecified asthma, uncomplicated; Z88.5 Allergy status to narcotic agent
CPT/HCPCS: 36415; 71045; 80053; 82550; 82553; 84484; 85025; 85610; 93005; 93010; 99285

== ENCOUNTER → 2018-01-10 | Outpatient (CLI) | payer BC ==
--- NOTE | 2018-01-10 14:56 | RADIOLOGY REPORT (SQ) ---
EXAM DESCRIPTION: ANKLE RIGHT COMPLETE COMPLETED DATE/TIME: 01/10/2018 2:27 pm REASON FOR STUDY: PAIN IN RIGHT ANKLE AND JOINTS OF RIGHT FOOT M25.571 PAIN IN RIGHT ANKLE AND JOIN TS OF RIGHT FOOT COMPARISON: Right foot films 03/04/2015 NUMBER OF VIEWS: Three views. TECHNIQUE: AP, lateral, and oblique radiographic images acquired of the right ankle. LIMITATIONS: None. FINDINGS: MINERALIZATION: Normal. BONES: No acute fracture or dislocation. No worrisome bone lesions. JOINTS: No tibiotalar joint effusion. No ankle mortise malalignment. SOFT TISSUES: No soft tissue swelling. No foreign body. OTHER: Minimal calcifications/ ossification of the Achilles tendon attachment to the calcaneus, simil ar compared to 2014 IMPRESSION: No acute fracture or malalignment No plain film evidence of arthritis right ankle TECHNICAL DOCUMENTATION: JOB ID: [id number] [employer]- All Rights Reserved Reading location - IP/workstation name: [email or web address]
== END ==
LOC: OD 14:05
PROVIDERS: ATTEND Pain Medicine Pain Medicine
DX: M25.571 Pain in right ankle and joints of right foot (principal)

== ENCOUNTER → 2018-01-31 | Outpatient (CLI) | payer BC ==
[2018-01-31 08:23] LABS: ABSOLUTE EOSINOPHILS # (AUTO) 0.2 10^3/uL (0.0-0.6); ABSOLUTE LYMPHOCYTES (AUTO) 0.8 10^3/uL (0.5-4.7); ABSOLUTE MONOCYTES (AUTO) 0.5 10^3/uL (0.1-1.4); ABSOLUTE NEUT (AUTO) 5.2 10^3/uL (1.7-8.2); BASOPHILS % (AUTO) 0.7 % (0-2); EOSINOPHILS % (AUTO) 2.6 % (0-6); HEMATOCRIT 42.1 % (36.0-47.0); HEMOGLOBIN 14.2 g/dL (12.0-15.5); LYMPHOCYTES % (AUTO) 12.3 % (13-45); MEAN CORPUSCULAR HEMOGLOBIN 30.3 pg (27.0-33.4); MEAN CORPUSCULAR HGB CONC 33.8 g/dL (32.0-36.0); MEAN CORPUSCULAR VOLUME 90 fl (80-97); MONOCYTES % (AUTO) 7.1 % (3-13); PLATELET COUNT 223 10^3/uL (150-450); RED BLOOD COUNT 4.69 10^6/uL (3.72-5.28); RED CELL DISTRIBUTION WIDTH 13.6 % (11.5-14.0); SEGMENTED NEUTROPHILS % (AUTO) 77.3 % (42-78); TOTAL CELLS COUNTED % (AUTO) 100 %; WHITE BLOOD COUNT 6.7 10^3/uL (4.0-10.5)
[2018-01-31 08:44] LABS: ALANINE AMINOTRANSFERASE 20 U/L (9-52); ALBUMIN 4.5 g/dL (3.5-5.0); ALKALINE PHOSPHATASE 84 U/L (38-126); ANION GAP 11 (5-19); ASPARTATE AMINO TRANSFERASE 19 U/L (14-36); BILIRUBIN,DIRECT 0.3 mg/dL (0.0-0.4); BILIRUBIN,TOTAL 0.4 mg/dL (0.2-1.3); BLOOD UREA NITROGEN 19 mg/dL (7-20); CALCIUM 9.8 mg/dL (8.4-10.2); CARBON DIOXIDE 29 mmol/L (22-30); CHLORIDE 104 mmol/L (98-107); GLUCOSE 92 mg/dL (75-110); POTASSIUM 4.8 mmol/L (3.6-5.0); SODIUM 144.3 mmol/L (137-145); TOTAL PROTEIN 6.9 g/dL (6.3-8.2)
--- NOTE | 2018-01-31 13:08 | RADIOLOGY REPORT (SQ) ---
EXAM DESCRIPTION: MRI RT LOWER JOINT WITHOUT COMPLETED DATE/TIME: 01/31/2018 7:51 am REASON FOR STUDY: PAIN IN RIGHT ANKLE AND JOINTS OF RIGHT FOOT (M25.571) M25.571 PAIN IN RIGHT ANKL E AND JOINTS OF RIGHT FOOT COMPARISON: None. TECHNIQUE: Right ankle images acquired and stored on PACS. Multiplanar images include fat sensitive sequences as T1, fluid sensitive sequences as FST2/STIR, cartilage sensitive sequences as FSPD, and g radient echo sequences. LIMITATIONS: None. FINDINGS: BONE MARROW: No alteration of signal to suggest marrow replacement or edema. No occult fra cture. No large osteophytes. EFFUSIONS: Small ankle joint effusion OSSEOUS ARTICULATIONS: Intact. TALAR DOME AND TIBIAL PLAFOND: Intact. ACHILLES TENDON: Intact without partial or full-thickness tear. No adjacent bursal fluid or edema. TIBIALIS ANTERIOR TENDON: Intact without edema at the 1st MT attachment. TIBIALIS POSTERIOR TENDON: Normal morphology and no edema at the navicular attachment. No tendon guadarrama th fluid. FLEXOR HALLUCIS LONGUS AND FLEXOR DIGITORUM TENDONS: Normal morphology and no tendon sheath fluid. No edema of the os trigonum. PERONEUS LONGUS AND BREVIS TENDON: Increased fluid in the common tendon sheath. High-grade split tea r of the peroneus brevis. ATFL, CFL, PTFL: Intact. No thickening or signal alteration. No vish-ligamentous fluid. DELTOID LIGAMENT: Visualized components intact. TARSAL TUNNEL: No masses. No muscle atrophy. SINUS TARSI: No fluid. No reactive marrow edema or erosions. PLANTAR FASCIA: No signal alteration or tear. ADJACENT SOFT TISSUES: No masses. OTHER: No other significant finding. IMPRESSION: Tenosynovitis. High-grade split tear of the peroneus brevis. TECHNICAL DOCUMENTATION: JOB ID: [id number] [employer]- All Rights Reserved Reading location - IP/workstation name: [email or web address]
[2018-02-01 05:41] LABS: HEPATITIS C VIRUS AB <0.1 s/co ratio (0.0-0.9)
== END ==
LOC: RAD 06:29
PROVIDERS: ATTEND Pain Medicine Pain Medicine
DX: R53.83 Other fatigue (principal); M25.571 Pain in right ankle and joints of right foot; Z79.899 Other long term (current) drug therapy
CPT/HCPCS: 36415; 80053; 82306; 82607; 83036; 84443; 85025; 86803; 86804

== ENCOUNTER → 2018-03-23 | Outpatient (CLI) | payer BC ==
--- NOTE | 2018-03-24 15:50 | RADIOLOGY REPORT (SQ) ---
EXAM DESCRIPTION: MRI LT UPPER JOINT WITHOUT COMPLETED DATE/TIME: 03/23/2018 10:00 am REASON FOR STUDY: ACUTE PAIN OF LEFT SHOULDER M25.512 PAIN IN LEFT SHOULDER COMPARISON: MRI left shoulder 01/24/2010 TECHNIQUE: Left shoulder images acquired and stored on PACS. Multiplanar imaging to include fat sens itive sequences such as T1, water sensitive sequences such as FST2/STIR, cartilage sensitive sequence s such as FSPD/gradient-echo sequences. LIMITATIONS: None. FINDINGS: BONE MARROW AND CORTEX: Subcortical cyst formation in the left humeral head greater tubero sity along the upper edge bicipital groove and posterior aspect greater tuberosity. No marrow signal abnormalities worrisome for occult fracture or aggressive marrow replacement process. There is subc ortical edema in the inferior bony glenoid. . JOINT OR BURSAL EFFUSION: Trace fluid in the subacromial/subdeltoid bursa GLENO-HUMERAL ARTICULATION: High-grade chondromalacia at the glenohumeral joint. No glenohumeral fiona nt malalignment ACROMION AND AC JOINT: Type 2 acromion with mild bony spurring narrowing the subacromial space. ROTATOR CUFF AND INTERVAL: There is high-grade tendinopathy in the distal supraspinatus tendon anteri or aspect, best shown on coronal image 11 and sagittal images 5-8. Infraspinatus is intact. Subscap ularis is intact. No rotator interval tear. No rotator interval thickening to suggest adhesive capsulitis. LABRUM AND BICEPS LABRAL COMPLEX: Intra-articular long head biceps tendinopathy best shown on sagit nohelia images 9-12. There is a superior labral tear extending anteriorly and posteriorly without parala bral cyst. This is best shown on axial images 8-11. REMAINDER OF LABRUM AND IGHL : No gross tear or paralabral cyst formation. Labral evaluation is less than optimal without joint distention. No thickening of IGHL to suggest adhesive capsulitis. PERIARTICULAR AND ADJACENT SOFT TISSUES: No masses or abnormal nodes. OTHER: No other significant finding. IMPRESSION: Anterior edge supraspinatus tendinopathy Intra-articular long head biceps tendinopathy Superior labral tear Glenohumeral joint osteoarthritis TECHNICAL DOCUMENTATION: JOB ID: [id number] [employer]- All Rights Reserved Reading location - IP/workstation name: [email or web address]
== END ==
LOC: RAD 08:34
PROVIDERS: ATTEND Orthopaedic Surgery
DX: M25.512 Pain in left shoulder (principal); M19.012 Primary osteoarthritis, left shoulder

== ENCOUNTER → 2018-04-17 | Outpatient (CLI) | payer BC | LOC: OD 07:43 | PROVIDERS: ATTEND Otolaryngology | DX: J01.91 Acute recurrent sinusitis, unspecified (principal) | CPT/HCPCS: 36415; 82785; 86003 ==

== ENCOUNTER → 2018-05-16 | Outpatient (CLI) | payer BC ==
--- NOTE | 2018-05-16 08:42 | RADIOLOGY REPORT (SQ) ---
EXAM DESCRIPTION: CT SINUSES FOR ENT COMPLETED DATE/TIME: 05/16/2018 7:52 am REASON FOR STUDY: ACUTE RECURRENT SINITIS J01.91 ACUTE RECURRENT SINUSITIS, UNSPECIFIED COMPARISON: None. TECHNIQUE: Noncontrast scanning through the paranasal sinuses using bone algorithm. Reconstructed MPR images reviewed. All images stored on PACS. Images acquired for image guided surgery. All CT scanners at this facility use dose modulation, iterative reconstruction, and/or weight based d osing when appropriate to reduce radiation dose to as low as reasonably achievable (ALARA). [facility]: Dose Right [facility]: CareDose [facility]: Dose Right [facility]: Teradose 4D [facility]: [employer] Standard [employer] RADIATION DOSE: 46.6 mGy. FINDINGS: NASAL PASSAGES: Clear. No polyps or masses. Moderate rightward nasal septal deviation wit h small right nasal septal spur. OSTEOMEATAL UNITS AND NASOFRONTAL DUCTS: Patent, but narrowed by mucous membrane thickening left grea ter than right. No agger nasi or Moy cells. MAXILLARY SINUSES: Well-pneumatized and clear. Maxillary sinus outlets are patent, but narrowed by mu cous membrane thickening left greater than right. ETHMOID SINUSES: Well-pneumatized and clear. SPHENOID SINUSES: Well-pneumatized and clear. No sphenoethmoid air cells or pneumatized pterygoid rec ess. No pneumatized dorsal sella. FRONTAL SINUSES: Not developed MASTOID AIR CELLS: Clear. ORBITS: Normal and symmetrical. NASAL SEPTUM: Moderate rightward nasal septal deviation with small right nasal septal spur TEMPOROMANDIBULAR JOINTS: Normal. TURBINATES: Minimal pneumatization of the middle turbinate. MUCOPERIOSTEAL THICKENING: No. MUCOCELE: No. OTHER: No other significant findings. IMPRESSION: NO EVIDENCE OF ACUTE SINUSITIS. TECHNICAL DOCUMENTATION: JOB ID: [id number] Quality ID # [id number]: Final reports with documentation of one or more dose reduction techniques (e.g., Au tomated exposure control, adjustment of the mA and/or kV according to patient size, use of iterative reconstruction technique) 2010 [employer]- All Rights Reserved Reading location - IP/workstation name: [email or web address]
== END ==
LOC: RAD 07:36
PROVIDERS: ATTEND Otolaryngology
DX: J01.91 Acute recurrent sinusitis, unspecified (principal)
CPT/HCPCS: 70486

== ENCOUNTER → 2018-07-10 | Outpatient (CLI) | payer BC ==
--- NOTE | 2018-07-10 09:51 | RADIOLOGY REPORT (SQ) ---
EXAM DESCRIPTION: CHEST 2 VIEWS COMPLETED DATE/TIME: 07/10/2018 9:37 am REASON FOR STUDY: ACUTE RECURRENT SINUSITIS, UNSPECIFIED COMPARISON: 11/16/2017, 01/05/2015 EXAM PARAMETERS: NUMBER OF VIEWS: two views TECHNIQUE: Digital Frontal and Lateral radiographic views of the chest acquired. RADIATION DOSE: NA LIMITATIONS: none FINDINGS: LUNGS AND PLEURA: No opacities, masses or pneumothorax. No pleural effusion. MEDIASTINUM AND HILAR STRUCTURES: No masses or contour abnormalities. HEART AND VASCULAR STRUCTURES: Heart normal size. No evidence for failure. BONES: No acute findings. HARDWARE: Implanted cardiac monitoring device over the anterior left chest OTHER: No other significant finding. IMPRESSION: NO ACUTE RADIOGRAPHIC FINDING IN THE CHEST. TECHNICAL DOCUMENTATION: JOB ID: [id number] [employer]- All Rights Reserved Reading location - IP/workstation name: [email or web address]
== END ==
LOC: RAD 09:09
PROVIDERS: ATTEND Otolaryngology
DX: J01.91 Acute recurrent sinusitis, unspecified (principal)
CPT/HCPCS: 71046

== ENCOUNTER → 2019-01-21 | Outpatient (CLI) | payer BC ==
[2019-01-21 16:05] LABS: CHOLESTEROL 237.74 mg/dL (0-200); TRIGLYCERIDES 104 mg/dL (<150)
[2019-01-21 16:16] LABS: DIRECT LDL 137 mg/dL (<100)
[2019-01-23 08:40] LABS: HEPATITIS C VIRUS AB <0.1 s/co ratio (0.0-0.9)
== END ==
LOC: LAB 15:09
PROVIDERS: ATTEND Nurse Practitioner
DX: Z79.899 Other long term (current) drug therapy (principal); R79.89 Other specified abnormal findings of blood chemistry
CPT/HCPCS: 36415; 80061; 82306; 82607; 83036; 84443; 86803; 86804

== ENCOUNTER → 2019-06-11 | Outpatient (CLI) | payer BC ==
--- NOTE | 2019-06-11 13:54 | RADIOLOGY REPORT (SQ) ---
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 TECHNIQUE: Sagittal and Axial imaging includes T1, T2, STIR and gradient echo sequences. LIMITATIONS: None. FINDINGS: LOCALIZER: No worrisome findings. ALIGNMENT: Normal. VERTEBRAE: Intact. BONE MARROW: Marrow edema anteriorly and inferiorly at T11 and superiorly and anteriorly at T12. Thi s could be posttraumatic. No loss of height within the vertebral bodies. HARDWARE: None in the spine. CORD: Normal in size and signal intensity. SOFT TISSUES: No soft tissue masses. THORACIC DISCS T1-T12: Focal left lateral disc protrusion at T7-T8 with mass effect on the left later al aspect of the cord. There is annular bulging at T8-T9 with a focal left lateral protrusion which slightly indents the anterior thecal sac. There is a focal left lateral disc protrusion at T10-T11 w hich again results in mass effect on the cord. There is a right paracentral protrusion at T12-L1 wit h mild effacement anterior thecal sac. LOWER CERVICAL: Incompletely imaged. No significant spinal stenosis or exit foraminal stenosis. UPPER LUMBAR: Incompletely imaged. No significant spinal stenosis or exit foraminal stenosis. OTHER: No other significant finding. IMPRESSION: 1. Focal left lateral disc protrusion at T7-T8 with mass effect on the left lateral aspe ct of the cord. 2. Focal left lateral protrusion at T8-T9 which indents the anterolateral aspect of the thecal sac. 3. Left lateral disc protrusion at T10-T11 which results in mass effect on the cord. 4. Right paracentral protrusion at T12 all 1 with mild mass effect on the right central and right la teral aspect of the thecal sac. 5. Marrow edema at T11-T12 most likely posttraumatic. No loss of height. TECHNICAL DOCUMENTATION: JOB ID: [id number] [employer]- All Rights Reserved Reading location - IP/workstation name: [email or web address]
== END ==
LOC: RAD 12:24
PROVIDERS: ATTEND Pain Medicine Pain Medicine
DX: M47.814 Spondylosis without myelopathy or radiculopathy, thoracic region (principal)
CPT/HCPCS: 72146

== ENCOUNTER → 2019-06-18 | Outpatient (CLI) | payer BC ==
--- NOTE | 2019-06-18 17:01 | RADIOLOGY REPORT (SQ) ---
EXAM DESCRIPTION: MRI LUMBAR SPINE WITHOUT COMPLETED DATE/TIME: 06/18/2019 2:58 pm REASON FOR STUDY: M54.17 RADICULOPATHY, LUMBOSACRAL REGION M54.17 RADICULOPATHY, LUMBOSACRAL REGION COMPARISON: Priors from 2017 and 2013. TECHNIQUE: Sagittal and Axial imaging includes T1, T2, STIR and gradient echo sequences. Coronal T2/ HASTE imaging. LIMITATIONS: None. FINDINGS: VISUALIZED UPPER ABDOMEN: Limited assessment due to motion and field of view. Stomach loo ks distended with debris. SEGMENTATION: No transitional anatomy. The lowest well-developed disc space is labeled L5-S1. ALIGNMENT: Anatomic. VERTEBRAE: Intact. BONE MARROW: T11-12 anterior endplate marrow edema. Improved L2-3 endplate edema. DISC SIGNAL: Variable signal and height loss. POSTERIOR ELEMENTS: Generally intact. No pars defect evident. HARDWARE: None in the spine. CORD AND CONUS: Normal in size and signal intensity. Conus at the appropriate level. SOFT TISSUES: No aortic aneurysm seen. No bulky retroperitoneal adenopathy or mass. No paraspinal mas s or fluid. L1-L2: Mild disc bulge. No overt impingement or significant stenosis. L2-L3: Disc bulge with mild superimposed central protrusion. This indents the ventral thecal sac. L ikely mild impingement on the bilateral proximal L3 nerve roots. Mild posterior ligament thickening with mild -moderate central narrowing otherwise. Noncritical foraminal encroachment. L3-L4: Disc bulge with central mild protrusion without mass effect on the nerve roots. Posterior lig ament thickening and facet overgrowth with slight central canal narrowing. Noncritical foraminal enc roachment. L4-L5: Facet overgrowth with associated ligament thickening. Mild-moderate central narrowing. Up to moderate left foraminal stenosis. L5-S1: No significant spinal stenosis or exit foraminal stenosis. LOWER THORACIC: T10-11 right paracentral protrusion contacts the distal cord. Limited assessment. SACRUM: Visualized upper sacrum intact. OTHER: No other significant findings. IMPRESSION: 1. Multilevel spondylosis. Similar appearance to prior. Includes multilevel disc and facet disease in the thoracic and lumbar spine. Up to mild-moderate central canal narrowing. 2. No fracture or worrisome bone lesion. TECHNICAL DOCUMENTATION: JOB ID: [id number] [employer]- All Rights Reserved Reading location - IP/workstation name: [email or web address]
== END ==
LOC: RAD 14:05
PROVIDERS: ATTEND Pain Medicine Pain Medicine
DX: M54.17 Radiculopathy, lumbosacral region (principal)
CPT/HCPCS: 72148

== ENCOUNTER → 2019-07-24 | Outpatient (CLI) | payer BC | LOC: OD 08:14 | PROVIDERS: ATTEND Nurse Practitioner | DX: R63.5 Abnormal weight gain (principal); M79.10 Myalgia, unspecified site | CPT/HCPCS: 36415; 82533 ==